=== PATIENT | female | born 1975 | race Hispanic/Latino ===

== ENCOUNTER 2017-06-03 21:54 | Emergency (ER) | payer OTHER ==
[2017-06-03 21:55] VITALS: BMI 43.2
[2017-06-03 22:16] VITALS: RESP 20
[2017-06-03 23:56] VITALS: BP 115/82; PULSE 100; TEMP 98; O2SAT 94
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
== END 2017-06-04 00:02 | disposition home or self-care (01) ==
LOC: C.ER 21:54
DX: Z04.41 Encounter for examination and observation following alleged adult rape (principal)